=== PATIENT | female | born 1995 | race Hispanic/Latino ===

== ENCOUNTER 2018-02-26 09:20 | Outpatient (CLI) | payer OTHER ==
--- NOTE | 2018-02-26 13:10 | RAD ---
HYSTEROSALPINGOGRAM: HISTORY: Fertility testing. The patient has a history of an ectopic with reported fallopian tube re moval on the right side. FINDINGS: In a retrograde fashion, contrast was used to opacify the endometrium and fallopian tubes. There is appropriate retrograde opacification of the endometrium. Both fallopian tubes do opacify. There is free spillage into the left hemipelvis, compatible with a patent left fallopian tube. The r ight fallopian tube does opacify, but there is no evidence of free spillage. On the last image, ther e is contrast in the right hemipelvis secondary to free spillage in the left hemipelvis crossing midl ine. On real-time imaging, there is no evidence of active free spillage from the visualized right fa llopian tube. The lower uterine segment is unremarkable. IMPRESSION: 1. Bilateral fallopian tubes are noted. This does not correspond to the patient's surgical history. Better interrogation with surgical history is recommended to assess what was done in the past. 2. Patent and open left fallopian tube with free spillage in the left hemipelvis. Definite right fa llopian tube patency cannot be demonstrated. POS: [facility]
== END 2018-02-26 09:21 | disposition home or self-care (01) ==
LOC: RAD 09:20
PROVIDERS: ATTEND Obstetrics & Gynecology
DX: Z31.41 Encounter for fertility testing (principal)
CPT/HCPCS: 58340; 74740

== ENCOUNTER 2018-10-07 14:00 | Emergency (ER) | payer OTHER ==
[~2018-10-07 14:00] MED LIST: ISOVUE-370 76%-LOCM 1 ML ONE
[2018-10-07 14:44] LABS: #Basophils 0.1 thou/uL (0.0-0.2); #Eosinphils 0.2 thou/uL (0.0-0.7); #Lymphocytes 1.3 thou/uL (1.20-3.40); #Monocytes 0.7 thou/uL (0.11-0.59); #Neutrophils 5.8 thou/uL (1.40-6.50); %Basophils 0.7 % (0.0-1.0); %Eosinophils 2.7 % (0.0-10.0); %Lymphocytes 16.1 % (21.0-51.0); %Monocytes 8.4 % (0.0-10.0); %Neutrophils 72.1 % (42.0-75.0); Hemoglobin 13.3 g/dL (12.0-16.0); Mean Corpuscular HGB CONC 33.8 g/dL (32.0-36.0); Mean Corpuscular Hemoglobin 28.5 pg (27.0-31.0); Mean Corpuscular Volume 84.4 fL (78.0-98.0); Mean Platelet Volume 7.9 fL (7.4-10.4); Platelet Count 303 thou/uL (130-400); RBC Distribution Width 12.2 % (11.5-14.5); Red Blood Cell (RBC) Count 4.68 mill/uL (4.20-5.40)
[2018-10-07 15:05] LABS: ALT (SGPT) 24 U/L (8-55); AST (SGOT) 25 U/L (5-34); Albumin 4.3 g/dL (3.5-5.0); Alkaline Phosphatase 79 U/L (40-150); Anion Gap 11 mmol/L (10-20); BUN (Urea Nitrogen) 9 mg/dL (7.0-18.7); Bilirubin, Total 0.5 mg/dL (0.2-1.2); Calc. Creatinine Clearance 0 mL/min (70-130); Calcium 9.2 mg/dL (7.8-10.44); Carbon Dioxide 23 mmol/L (22-29); Chloride 107 mmol/L (98-107); Estimated GFR-MDRD Greater than 90; Globulin 3.2 g/dL (2.4-3.5); Glucose 75 mg/dL (70-105); Lipase 25 U/L (8-78); Potassium 3.7 mmol/L (3.5-5.1); Protein, Total 7.5 g/dL (6.0-8.3); Sodium 137 mmol/L (136-145)
[2018-10-07] MEDS ORDERED: Morphine 4 MG/ML VIAL ONE (16:08)
[2018-10-07] MEDS ORDERED: Ondansetron PF 4 MG/2 ML Vial ONE (16:09)
[2018-10-07 17:09] LABS: BHCG - Serum Negative (NEGATIVE); Pregs Control Background? CLEAR/WHITE (CLR/WHITE); Pregs Control Bar Appear? YES (CONTROL BAR)
[2018-10-07 18:10] LABS: Bilirubin Negative (Negative); Blood, Urine Negative (Negative); Clarity CLOUDY (Clear); Glucose, Urine (Dipstick) Negative (Negative); Leukocyte Small (Negative); Nitrite Negative (Negative); Protein, Urine (Dipstick) Negative (Neg-Trace); Specific Gravity, Urine 1.029 (1.002-1.036); Urobilinogen 0.2 mg/dL (0.2-1.0)
[2018-10-07 18:16] LABS: Pregnancy Test - Urine (BHCG) Negative (Negative); Pregu Control Background? CLEAR/WHITE (CLR/WHITE); Pregu Control Bar Appear? YES (CONTROL BAR); Specific Gravity 1.029 (1.002-1.036)
[2018-10-07 18:30] LABS: Bacteria/HPF None Seen HPF (None Seen); Hyaline Casts/LPF NONE SEEN LPF (0-3 Hyaline); RBC/HPF None Seen HPF (0-3); WBC/HPF None Seen HPF (0-3)
[2018-10-07] MEDS ORDERED: Ondansetron ODT 4 MG TAB ONE (18:36)
[2018-10-07] MEDS ORDERED: Ketorolac Tromethamine 30 MG/ML VIAL ONE (18:36)
--- NOTE | 2018-10-07 18:36 | CT ---
CT abdomen and pelvis with IV contrast. Oral contrast was not administered. INDICATIONS: Right lower quadrant abdominal pain COMPARISON: 01/06/2012 FINDINGS: Lung bases are clear Liver, spleen, and pancreas appear unremarkable. Stomach and duodenum appear unremarkable. Adrenal glands appear normal. There is a 4 mm nonobstructing calculus in the upper collecting structures the right kidney. 3 mm non obstructing calculus lower pole collecting structures right kidney. Kidneys otherwise unremarkable. Urinary bladder unremarkable. Small bowel loops are normal caliber and exhibit normal fold pattern. Appendix is identified and appears unremarkable. Colon is unremarkable. Aorta is normal caliber. No evidence of retroperitoneal or mesenteric adenopathy. Uterus appears unremarkable. Moderate amount of free fluid in the cul-de-sac. Ovaries poorly delineat ed. Subcutaneous tissues, abdominal wall, and muscular structures appear unremarkable. Osseous structures appear unremarkable. IMPRESSION: Moderate amount of free fluid in the cul-de-sac. Ovaries poorly evaluated. Correlate with serum hCG l evel. Pelvic ultrasound may be of benefit. Nonobstructing calculi in the upper collecting structures right kidney.
--- NOTE | 2018-10-07 19:59 | ULT ---
PELVIC ULTRASOUND: 10/07/18 Transabdominal and endovaginal ultrasound of pelvis performed. INDICATION: Pelvic pain. Uterus is unremarkable. Endometrial stripe is upper normal measured at 1.2 cm. There is a septated cyst right ovary measuring 4.1 x 1.5 x 2.6 cm. Free fluid is seen in the cul-de-s ac. Ovaries otherwise unremarkable. Color Doppler and spectral analysis demonstrates blood flow to mohamud th ovaries. IMPRESSION: 1. A complex septated cyst right ovary measuring up to 4 cm. 2. Free fluid in the cul-de-sac. 3. Mildly thickened endometrium. POS: [facility]
[2018-10-09 00:39] LABS: Chlamydia by PCR Not Detected (NotDetected); GC by PCR Not Detected (NotDetected)
== END 2018-10-07 20:50 | disposition home or self-care (01) ==
LOC: ERS 14:00
DX: N83.201 Unspecified ovarian cyst, right side (principal)
CPT/HCPCS: 36415; 74177; 76856; 80053; 81003; 81015; 81025; 83690; 84703; 85025; 87480; 87491; 87510; 87591; 87660; 96361; 96374; 96375; J1885; J2270; J2405; Q0162; Q9966

== ENCOUNTER 2018-10-08 14:33 | Emergency (ER) | payer OTHER ==
[2018-10-08] MEDS ORDERED: Ketorolac Tromethamine 60 MG/2 ML VIAL ONE (15:25)
[2018-10-08 15:41] LABS: #Eosinphils 0.3 thou/uL (0.0-0.7); #Lymphocytes 1.6 thou/uL (1.20-3.40); #Monocytes 0.7 thou/uL (0.11-0.59); #Neutrophils 5.3 thou/uL (1.40-6.50); %Basophils 0.5 % (0.0-1.0); %Eosinophils 3.6 % (0.0-10.0); %Lymphocytes 20.1 % (21.0-51.0); %Monocytes 9.1 % (0.0-10.0); %Neutrophils 66.7 % (42.0-75.0); Hemoglobin 12.7 g/dL (12.0-16.0); Mean Corpuscular HGB CONC 32.8 g/dL (32.0-36.0); Mean Corpuscular Hemoglobin 27.8 pg (27.0-31.0); Mean Corpuscular Volume 84.8 fL (78.0-98.0); Mean Platelet Volume 7.8 fL (7.4-10.4); Platelet Count 294 thou/uL (130-400); RBC Distribution Width 12.3 % (11.5-14.5); Red Blood Cell (RBC) Count 4.55 mill/uL (4.20-5.40)
[2018-10-08 16:04] LABS: ALT (SGPT) 24 U/L (8-55); AST (SGOT) 20 U/L (5-34); Albumin 3.9 g/dL (3.5-5.0); Alkaline Phosphatase 73 U/L (40-150); Anion Gap 10 mmol/L (10-20); BHCG - Serum Negative (NEGATIVE); BUN (Urea Nitrogen) 9 mg/dL (7.0-18.7); Bilirubin, Total 0.3 mg/dL (0.2-1.2); Calc. Creatinine Clearance 0 mL/min (70-130); Calcium 9.1 mg/dL (7.8-10.44); Carbon Dioxide 24 mmol/L (22-29); Chloride 108 mmol/L (98-107); Estimated GFR-MDRD Greater than 90; Globulin 3.1 g/dL (2.4-3.5); Glucose 88 mg/dL (70-105); Pregs Control Background? CLEAR/WHITE (CLR/WHITE); Pregs Control Bar Appear? YES (CONTROL BAR); Sodium 138 mmol/L (136-145)
--- NOTE | 2018-10-08 16:27 | ULT ---
TRANSVAGINAL PELVIC ULTRASOUND WITH REIS SCALE, COLOR FLOW AND SPECTRAL DOPPLER IMAGIN10/08/18 HISTORY: Right sided pelvic pain. COMPARISON: Previous day. FINDINGS: The uterus measures 6.4 x 3.2 x 4.5 cm without focal mass or endometrial fluid. The endometrium measu res 12 mm in thickness. The right ovary measures 2.7 x 5.4 x 4 cm and the left ovary measures 2.9 x 1.8 x 1.6 cm. Flow is dem onstrated to both ovaries. There is a 3.1 x 3.1 x 2.3 cm complex septated cystic mass arising from the right ovary which appear s slightly smaller compared to the previous study (4.1 x 1.5 x 2.6 cm). Free fluid in the cul-de-sac is again seen. IMPRESSION: 1. Complex septated right ovarian cyst slightly smaller compared to the previous day's exam. 2. Free fluid in the cul-de-sac. POS: [facility]
== END 2018-10-08 16:12 | disposition home or self-care (01) ==
LOC: ERS 14:33
DX: N83.201 Unspecified ovarian cyst, right side (principal)
CPT/HCPCS: 36415; 76856; 80053; 84703; 85025; 96372; J1885

== ENCOUNTER 2018-11-20 16:27 | Outpatient (CLI) | payer OTHER | END 2018-11-20 16:28 | disposition home or self-care (01) | LOC: CTENTCT 16:27 | PROVIDERS: ATTEND Otolaryngology Plastic Surgery within the Head & Neck | DX: J32.9 Chronic sinusitis, unspecified (principal) | CPT/HCPCS: 70486 ==

== ENCOUNTER 2018-11-26 08:11 | Day surgery (SDC) | payer OTHER ==
[2018-11-25 11:43] VITALS: BMI 29.0
[2018-11-26] MEDS ORDERED: Oxymetazoline HCl 0.05% ( 15 ML ) ONE ×2 (09:02→11:26)
[2018-11-26 09:19] LABS: BHCG - Serum Negative (NEGATIVE); Pregs Control Background? CLEAR/WHITE (CLR/WHITE); Pregs Control Bar Appear? YES (CONTROL BAR)
[2018-11-26] MEDS ORDERED: Fentanyl 250 MCG/5 ML VIAL ONE (09:28)
[2018-11-26] MEDS ORDERED: Lidocaine 1% PF 5 ML VIAL ONE (11:20)
[2018-11-26] MEDS ORDERED: ePHEDrine 50 MG/ML VIAL ONE (11:20)
[2018-11-26] MEDS ORDERED: PROPOFOL 200 MG/20 ML VIAL ONE (11:20)
[2018-11-26] MEDS ORDERED: Ondansetron PF 4 MG/2 ML Vial ONE (11:20)
[2018-11-26] MEDS ORDERED: Bacitracin Zinc Ointment 30 gm TUBE ONE (11:26)
[2018-11-26] MEDS ORDERED: Lidocaine 1% w/Epinephrine 1:100K 20 ML VIAL ONE (11:26)
[2018-11-26] MEDS ORDERED: Fentanyl 100 MCG/2 ML VIAL ONE (12:50)
[2018-11-26] MEDS ORDERED: Midazolam HCl 2 mg/2 ml Vial ONE ×2 (13:09→13:43)
[2018-11-26] MEDS ORDERED: Sodium Chloride For Inhalation 0.9% 3 ML NEB ONE (13:26)
[2018-11-26] MEDS ORDERED: SUGAMMADEX SODIUM 500 MG/5 ML VIAL ONE (13:33)
[2018-11-26] MEDS ORDERED: Lidocaine 1% (PF) 30 ML VIAL ONE (13:39)
--- NOTE | 2018-11-26 14:34 | RAD ---
CHEST ONE VIEW: 11/26/18 COMPARISON: Radiograph from 2015. HISTORY: Chest pain, chest tightness. FINDINGS: The lungs are clear. No pneumothorax. No effusion. No acute osseous abnormality. IMPRESSION: No acute intrathoracic abnormality. POS: [facility]
--- NOTE | 2018-11-26 14:36 | OP ---
DATE OF PROCEDURE: 11/26/2018 PREOPERATIVE DIAGNOSES: 1. Chronic rhinosinusitis. 2. Nasal septal deviation. 3. Bilateral inferior turbinate hypertrophy. 4. Left middle turbinate luis bullosa. 5. Nasal obstruction. POSTOPERATIVE DIAGNOSES: 1. Chronic rhinosinusitis. 2. Nasal septal deviation. 3. Bilateral inferior turbinate hypertrophy. 4. Left middle turbinate luis bullosa. 5. Nasal obstruction. PROCEDURES PERFORMED: 1. Bilateral endoscopic sinus surgery, total ethmoidectomies. 2. Bilateral endoscopic sinus surgery, maxillary antrostomies. 3. Bilateral endoscopic sinus surgery, frontal sinusotomies. 4. Nasal septoplasty. 5. Bilateral inferior turbinate submucosal resection. ESTIMATED BLOOD LOSS: 20 mL. COMPLICATIONS: None. ANESTHESIA: GETA. PROCEDURE IN DETAIL: Patient was taken to the operating room and placed supine on the table. General endotracheal anesthesia was obtained by the anesthesia staff. Tube was secured in the left lower lip. Patient was then placed in the beach chair position, and Afrin pledgets were placed in the nasal cavity. Injections of 1% lidocaine with 1:100,000 epinephrine were made into the nasal septum as well as the inferior turbinates. Patient was then prepped and draped in standard surgical fashion for nasal surgery. Following this, the Afrin pledgets were removed. A Chaires incision was made on the left nasal septum. Submucoperichondrial dissection was performed. The deviated portions of the septum included portions of the cartilage and the bony septum. These isolated areas were removed using 3 cutting rongeurs. There was noted to be a large dorsal and caudal strut, left intact for support of the nose. The mucoperichondrial flaps were then reapproximated using a 4-0 gut stitch. Any straight pieces of cartilage were crushed prior to this and placed between the mucoperichondrial flaps. Following this, the inferior turbinates were then punctured with a submucosal coblation wand, and submucosal coblations were performed of multiple areas of the inferior portion of the anterior inferior turbinate. Please note that the submucosal microdebrider was used to submucosally resect the anterior and inferior portions of the inferior turbinates bilaterally. Following this, the large left middle turbinate luis bullosa deformity was incised vertically with a sickle knife on the anterior end of the middle turbinate. The lateral wall of this luis bullosa was then resected using the 0-degree microdebrider and straight Blakesley forceps. Following this, the uncinate process was visualized bilaterally and the uncinate process was anteriorly fractured using a ball-ended probe. Following this, the uncinate was then removed using the curved microdebrider and up-biting Blakesley forceps bilaterally. Following this, the natural maxillary sinus ostia was identified and was widened using the ball-ended probe, straight Blakesley forceps, and 40-degree microdebrider blade bilaterally. Following this, the ethmoidal bulla was identified and was punctured on its medial and inferior aspect and was removed using the microdebrider and up-biting Blakesley forceps. Following this, the grand lamella was identified and was punctured into the posterior ethmoidal cells. Working from posterior to anterior, the ethmoidal cells were opened in a mucosal-sparing technique. Following this, a 45-degree endoscope along with 40-degree microdebrider blade were used to further open the frontal sinus ostia bilaterally. Following this, the curved microdebrider and curved suction device were used to remove large polyps from the right maxillary sinus. Following this, the nasal cavity was irrigated. Mirapex was placed. Toscano splints were placed and secured. The patient tolerated the procedure well. Job ID: [id number]
== END 2018-11-26 16:57 | disposition home or self-care (01) ==
LOC: SDC 08:11
PROVIDERS: ATTEND Otolaryngology Plastic Surgery within the Head & Neck
PROC: 09TL8ZZ Resection of Nasal Turbinate, Via Natural or Artificial Opening Endoscopic (ICD-10-PCS; principal; 2018-11-26)
PROC: 099R8ZZ Drainage of Left Maxillary Sinus, Via Natural or Artificial Opening Endoscopic (ICD-10-PCS; principal; 2018-11-26)
PROC: 099Q8ZZ Drainage of Right Maxillary Sinus, Via Natural or Artificial Opening Endoscopic (ICD-10-PCS; principal; 2018-11-26)
DX: J32.8 Other chronic sinusitis (principal); J34.2 Deviated nasal septum; J34.3 Hypertrophy of nasal turbinates; J34.89 Other specified disorders of nose and nasal sinuses
CPT/HCPCS: 36415; 71045; 84703; 85014; J0131; J2001; J2250; J2405; J2704; J3010; J3490; J7620

== ENCOUNTER 2020-03-18 01:18 | Emergency (ER) | payer BC, OTHER ==
[2020-03-18 01:43] LABS: #Basophils 0.1 thou/uL (0.0-0.2); #Eosinphils 0.3 thou/uL (0.0-0.7); #Lymphocytes 2.1 thou/uL (1.20-3.40); #Monocytes 0.8 thou/uL (0.11-0.59); #Neutrophils 7.1 thou/uL (1.40-6.50); %Basophils 0.6 % (0.0-1.0); %Eosinophils 2.6 % (0.0-10.0); %Lymphocytes 20.6 % (21.0-51.0); %Neutrophils 68.2 % (42.0-75.0); Hemoglobin 12.9 g/dL (12.0-16.0); Mean Corpuscular HGB CONC 33.7 g/dL (32.0-36.0); Mean Corpuscular Hemoglobin 28.1 pg (27.0-31.0); Mean Corpuscular Volume 83.2 fL (78.0-98.0); Mean Platelet Volume 8.2 fL (7.4-10.4); Platelet Count 309 thou/uL (130-400); RBC Distribution Width 11.9 % (11.5-14.5); Red Blood Cell (RBC) Count 4.61 mill/uL (4.20-5.40); White Blood Cell (WBC) Count 10.3 thou/uL (4.8-10.8)
[2020-03-18 01:46] LABS: Bilirubin Negative (Negative); Blood, Urine Large (Negative); Glucose, Urine (Dipstick) Negative (Negative); Ketone, Urine Trace mg/dL (Negative); Leukocyte Small (Negative); Nitrite Negative (Negative); Protein, Urine (Dipstick) 100 mg/dL (Neg-Trace); Urobilinogen 0.2 mg/dL (Less than 2)
[2020-03-18 01:47] LABS: Clarity Cloudy (Clear)
[2020-03-18 01:48] LABS: Pregnancy Test - Urine (BHCG) Negative (Negative); Pregu Control Background? CLEAR/WHITE (CLR/WHITE); Pregu Control Bar Appear? YES (CONTROL BAR); Specific Gravity 1.033 (1.002-1.036); Specific Gravity, Urine 1.033 (1.002-1.036)
[2020-03-18] MEDS ORDERED: Ondansetron PF 4 MG/2 ML Vial ONE (01:51)
[2020-03-18 01:52] LABS: Bacteria/HPF Rare-Few HPF (None Seen); RBC/HPF Greater than 50 HPF (0-3); Squamous Epithelial 0-3 HPF (0-3)
[2020-03-18] MEDS ORDERED: Morphine 2 MG/ML VIAL ONE (02:01)
[2020-03-18 02:04] LABS: ALT (SGPT) 15 U/L (8-55); AST (SGOT) 16 U/L (5-34); Albumin 4.3 g/dL (3.5-5.0); Alkaline Phosphatase 92 U/L (40-110); Anion Gap 11 mmol/L (10-20); BUN (Urea Nitrogen) 11 mg/dL (7.0-18.7); Bilirubin, Total 0.5 mg/dL (0.2-1.2); Calc. Creatinine Clearance 0 mL/min (70-130); Calcium 9.1 mg/dL (7.8-10.44); Carbon Dioxide 26 mmol/L (22-29); Chloride 107 mmol/L (98-107); Estimated GFR-MDRD 86; Globulin 3.3 g/dL (2.4-3.5); Glucose 97 mg/dL (70-105); Potassium 3.5 mmol/L (3.5-5.1); Protein, Total 7.6 g/dL (6.0-8.3); Sodium 140 mmol/L (136-145)
[2020-03-18] MEDS ORDERED: Ketorolac Tromethamine 30 MG/ML VIAL ONE (02:53)
--- NOTE | 2020-03-18 08:08 | CT ---
PRELIMINARY REPORT/[facility]/EMERGENCY AFTER HOURS PROCEDURE EXAM: CT Abdomen and Pelvis with Intravenous Contrast CLINICAL HISTORY: 24yo F with abdominal pain starting around 2200 tonight while sitting on the couch. Describes it as R LQ, sharp and cramping. TECHNIQUE: Axial computed tomography images of the abdomen and pelvis with intravenous contrast. CONTRAST: With; ISOVUE 370,100mL COMPARISON: None provided. FINDINGS: LUNG BASES: No basilar airspace consolidation or pleural effusion. LIVER: Unremarkable. GALLBLADDER AND BILE DUCTS: Unremarkable. No calcified stone. No ductal dilation. PANCREAS: Unremarkable. SPLEEN: Unremarkable. ADRENAL GLANDS: Unremarkable. KIDNEYS, URETERS, AND BLADDER: There is some asymmetric prominence of the upper collecting system of the right kidney however no ure teral dilatation or ureteral stones are seen. Bladder is mildly distended. On coronal imaging, there is a punctate stone in the inferior pole calyx on the right. STOMACH AND BOWEL: No obstruction. No wall thickening. No CT evidence of colitis or acute diverticulitis. APPENDIX: Normal appendix. PERITONEUM: Small amount of free fluid in the cul-de-sac. No free air. LYMPH NODES: No lymphadenopathy. REPRODUCTIVE: Unremarkable as visualized. VASCULATURE: No aortic aneurysm. BONES: No fracture or suspicious osseous abnormality. ABDOMINAL WALL AND SOFT TISSUES: Unremarkable. IMPRESSION: Some prominence of the upper collecting system on the right without an obstructing stone identified o n this contrast-enhanced study. There is a small phlebolith noted in the right hemipelvis near the ureter but this is a phlebolith. No specific, acute abnormalities identified. ELECTRONICALLY SIGNED BY: Stone Charlton MD Mar 18, 2020 5:10:08 AM STAFFING ASSOCIATE This report is intended for review by the ordering physician only, in accordance of law. If you recei ve this report in error, please call [facility] at [phone]. FINAL REPORT Final report by Dr. Ibrahim Emergency after-hours study CT ABDOMEN WITH CONTRAST CT PELVIS WITH CONTRAST: DATE: 03/18/2020 4:44 AM HISTORY: 24-year-old female with right lower quadrant abdominal pain. Dr. Ibrahim reported the discrepancy with the preliminary report by [facility] regarding the right ureteral calculus, by telephone to ER charge nurse, Sarah Beal, at 8:03 AM 03/18/2020 COMPARISON: 10/07/2018 TECHNIQUE: IV injection of iodinated contrast media: administered. Oral contrast media:Administered. FINDINGS: There is a new 5 x 4 x 4 mm calculus in the right distal ureter at the mid sacral level of the pelvic inlet. Although the right ureter is not significantly dilated, there is mild dilation of the right renal collecting system. Furthermore, there is a delayed right nephrogram compared to the normal left nephrogram. The small calculus at the lower pole of the right kidney was reported by the [facility] prelimi nary report. It measures approximately 3 x 2 x 2 mm. Slightly inferior to that, there is a small focal lower pole cortical scar. The appendix, abdominal aorta, pancreas, adrenals, liver, spleen, and the distended urinary bladder, are normal. No small bowel dilation or colonic diverticulitis. Small amount of free fluid in the cul-de-sac is probably physiologic in a patient of this age. Disagreement with preliminary report by [facility]. IMPRESSION: 1) positive for obstructive uropathy: 5 mm calculus in right distal ureter causing mild right hydrone phrosis and delayed right nephrogram. 2) mild nephrolithiasis consisting of a small 3 x 2 mm calculus in right kidney. Transcribed Date/Time: 03/18/2020 8:42 AM
--- NOTE | 2020-03-18 08:31 | ULT ---
PRELIMINARY REPORT/[facility]/EMERGENCY AFTER HOURS PROCEDURE: EXAM: US Pelvis, Complete. CLINICAL HISTORY: RLQ pelvic pain, constipation, N/V TECHNIQUE: Transvaginal and transabdominal pelvic ultrasound (complete) with image documentation. COMPARISON: None provided. FINDINGS: ENDOMETRIUM: Normal thickness. UTERUS/CERVIX: Normal size and contour. No fibroid detected. Measures 6.5 x 2.8 x 3.6 cm RIGHT OVARY: Normal follicles. No adnexal mass. Normal blood flow. Measures 2.9 x 1.7 x 3.2 cm LEFT OVARY: Normal follicles. No adnexal mass. Normal blood flow. Measures 2.8 x 3.5 x 1.9 cm FREE FLUID: No free fluid. IMPRESSION: Unremarkable pelvic ultrasound. ELECTRONICALLY SIGNED BY: Terrence Grimm MD Mar 18, 2020 2:53:28 AM [employer] This report is intended for review by the ordering physician only, in accordance of law. If you recei ve this report in error, please call [facility] at [phone]. FINAL REPORT PELVIC ULTRASOUND INCLUDING TRANSABDOMINAL AND TRANSVAGINAL AND VASCULAR DUPLEX WITH COLOR AND SPECTR AL DOPPLER IMAGING PERFORMED ON AN EMERGENCY AFTER HOURS BASIS AT 0236 HOURS ON 03/18/2020: Uterus and right and left ovaries are unremarkable. There is vascular flow to both ovaries. No abnorm al fluid collection. IMPRESSION: Unremarkable pelvic ultrasound. This report is in agreement with preliminary report by [facility]. POS: [facility]
[2020-03-18] MEDS ORDERED: Iopamidol-370 76% 500 ML 1 ML ONE (13:53)
== END 2020-03-18 05:44 | disposition home or self-care (01) ==
LOC: ERS 01:18
DX: R10.31 Right lower quadrant pain (principal)
CPT/HCPCS: 74177; 76856; 80053; 81003; 81015; 81025; 85025; 87086; 96374; 96375; J1885; J2270; J2405; Q9967

== ENCOUNTER 2020-03-19 10:31 | Observation (INO) | payer BC ==
[2020-03-19] MEDS ORDERED: Ketorolac Tromethamine 30 MG/ML VIAL ONE (10:56)
[2020-03-19] MEDS ORDERED: Ondansetron PF 4 MG/2 ML Vial ONE (10:56)
[2020-03-19] MEDS ORDERED: Morphine 4 MG/ML VIAL ONE ×2 (10:56→11:59)
[2020-03-19 11:13] LABS: #Basophils 0.1 thou/uL (0.0-0.2); #Eosinphils 0.2 thou/uL (0.0-0.7); #Lymphocytes 1.4 thou/uL (1.20-3.40); #Monocytes 0.3 thou/uL (0.11-0.59); #Neutrophils 4.2 thou/uL (1.40-6.50); %Basophils 0.8 % (0.0-1.0); %Eosinophils 2.6 % (0.0-10.0); %Lymphocytes 23.2 % (21.0-51.0); %Neutrophils 68.4 % (42.0-75.0); Hemoglobin 12.8 g/dL (12.0-16.0); Mean Corpuscular HGB CONC 33.1 g/dL (32.0-36.0); Mean Corpuscular Hemoglobin 27.5 pg (27.0-31.0); Mean Corpuscular Volume 83.1 fL (78.0-98.0); Platelet Count 299 thou/uL (130-400); RBC Distribution Width 12.2 % (11.5-14.5); Red Blood Cell (RBC) Count 4.66 mill/uL (4.20-5.40); White Blood Cell (WBC) Count 6.1 thou/uL (4.8-10.8)
[2020-03-19 11:22] LABS: ALT (SGPT) 11 U/L (8-55); AST (SGOT) 21 U/L (5-34); Alkaline Phosphatase 82 U/L (40-110); Anion Gap 14 mmol/L (10-20); BUN (Urea Nitrogen) 9 mg/dL (7.0-18.7); Bilirubin, Total 0.5 mg/dL (0.2-1.2); Calc. Creatinine Clearance 0 mL/min (70-130); Carbon Dioxide 22 mmol/L (22-29); Chloride 108 mmol/L (98-107); Estimated GFR-MDRD Greater than 90; Globulin 3.5 g/dL (2.4-3.5); Glucose 83 mg/dL (70-105); Potassium 4.2 mmol/L (3.5-5.1); Protein, Total 7.5 g/dL (6.0-8.3); Sodium 140 mmol/L (136-145)
[2020-03-19 11:28] LABS: Bacteria/HPF None Seen HPF (None Seen); Bilirubin Negative (Negative); Blood, Urine 1+ (Negative); Clarity Clear (Clear); Glucose, Urine (Dipstick) Normal (Negative); Ketone, Urine Negative (Negative); Leukocyte Negative Leu/uL (Negative); Mucous/LPF 1+ LPF (<2+); Nitrite Negative (Negative); Protein, Urine (Dipstick) Negative (Neg-Trace); RBC/HPF 21-50 HPF (0-3); Specific Gravity, Urine 1.017 (1.002-1.036); Urobilinogen Normal mg/dL (Less than 2); WBC/HPF 0-3 HPF (0-3); pH, Urine 6.5 (5.0-9.0)
--- NOTE | 2020-03-19 12:43 | ULT ---
ULTRASOUND RETROPERITONEUM COMPLETE: (RENAL) DATE: 03/19/2020 HISTORY: 24-year-old female with right abdominal pain FINDINGS: Right kidney: 10.5 x 5 x 4.5 cm. Left kidney: 10.5 x 5 x 4.5 cm. Dilation of right renal pelvis and mild dilation of right calyces. In the urinary bladder, a strong left ureteral jet is visualized. A weaker right ureteral jet is visu alized. IMPRESSION: Partial right ureteral obstruction
[2020-03-19] MEDS ORDERED: Fentanyl 100 MCG/2 ML VIAL ONE (13:31)
[2020-03-19] MEDS ORDERED: diphenhydrAMINE 50 MG/ML VIAL IVP PRN (15:11)
[2020-03-19] MEDS ORDERED: Morphine 4 MG/ML VIAL SLOW IVP PRN (15:11)
[2020-03-19] MEDS ORDERED: Zolpidem Tartrate 5 MG TAB PO PRN (15:11)
[2020-03-19] MEDS: D5 1/2 NS w/20 mEq KCL 1,000 ML IV SCH (15:26)
[2020-03-19] MEDS: HYDROcodone/Acetaminophen 5/325 mg Tablet PO PRN ×2 (15:26→19:28)
[2020-03-19] MEDS: Ondansetron PF 4 MG/2 ML Vial IVP PRN ×2 (15:29→20:50)
[2020-03-19] MEDS: Ketorolac Tromethamine 30 MG/ML VIAL IVP SCH ×2 (17:36→23:15)
[2020-03-19] MEDS: Docusate 100 MG CAP PO SCH (19:29)
[2020-03-20] MEDS: D5 1/2 NS w/20 mEq KCL 1,000 ML IV SCH ×2 (01:30→16:32)
[2020-03-20] MEDS: Ketorolac Tromethamine 30 MG/ML VIAL IVP SCH ×2 (06:42→14:24)
[2020-03-20] MEDS ORDERED: Iothalamate Meglumine 60% 50 ML VIAL FS ONE (07:45)
[2020-03-20] MEDS ORDERED: FLU VACC QS2020-21(6MOS UP)/PF 60 MCG/0.5 ML SYRINGE IM ONE (09:00)
[2020-03-20] MEDS ORDERED: Promethazine HCl 25 MG/ML VIAL SLOW IVP PRN (09:06)
[2020-03-20] MEDS ORDERED: Meperidine HCl/PF 25 MG/ML VIAL SLOW IVP PRN (09:06)
[2020-03-20] MEDS ORDERED: Ondansetron HCl/PF 4 MG/2 ML Vial IVP PRN (09:06)
[2020-03-20] MEDS ORDERED: Promethazine HCl 25 MG/ML VIAL IM PRN (09:06)
[2020-03-20] MEDS: Docusate 100 MG CAP PO SCH ×2 (09:14→14:24)
[2020-03-20] MEDS ORDERED: Ondansetron PF 4 MG/2 ML Vial ONE (09:16)
[2020-03-20] MEDS ORDERED: Lidocaine 1% PF 5 ML VIAL ONE (09:16)
[2020-03-20] MEDS ORDERED: PROPOFOL 200 MG/20 ML VIAL ONE (09:16)
[2020-03-20] MEDS ORDERED: Midazolam HCl 2 mg/2 ml Vial ONE (09:50)
[2020-03-20] MEDS ORDERED: Fentanyl 100 MCG/2 ML VIAL ONE ×2 (09:54→10:54)
[2020-03-20 10:15] VITALS: TEMP 98.7
--- NOTE | 2020-03-20 10:54 | RAD ---
Exam: Right retrograde pyelogram: HISTORY: Ureteral calculus. COMPARISON: 03/18/2020 CT FINDINGS: Right ureter is catheterized. Contrast media is injected with probable right ureteral calculus. Right ureteral stent is placed. IMPRESSION: Evidence for right ureteral calculus. Right ureteral stent is placed.
--- NOTE | 2020-03-20 11:36 | OP ---
DATE OF PROCEDURE: 03/20/2020 PREOPERATIVE DIAGNOSIS: Right ureteral stone. POSTOPERATIVE DIAGNOSIS: Right ureteral stone. PROCEDURES PERFORMED: Cystoscopy with right retrograde pyelogram and 4.8 x 24 double-J ureteral stent placement. ANESTHESIA: General. COMPLICATIONS: None. ESTIMATED BLOOD LOSS: None. SPECIMEN: None. DESCRIPTION OF PROCEDURE: After informed consent, the patient was taken to the operating room, transferred to the table under her own power. Anesthesia was established. A time-out was performed, showing the correct patient, site, and procedure. Preoperative antibiotics were administered. She was prepped and draped in the lithotomy position. I began by inserting the rigid cystoscope through the urethra into the bladder. The right ureteral orifice was identified and I attempted to pass the Pollack catheter, however, it seemed become obstructed shortly after entering the ureteral orifice. A wire was then passed through this into the renal pelvis under fluoroscopic guidance and I was able to pass the Pollack into the distal ureter. The wire was removed and a retrograde pyelogram was performed showing minimal hydroureter or hydronephrosis with no filling defects. Given the possible obstruction in the distal ureter, I then switched to the semi-rigid ureteroscope and was able to negotiate this into the distal ureter only about 2 cm before developing significant difficulty passing it. I did not identify the stone, indicating that it likely remains more proximal in the ureter. I then removed that scope and passed a 4.8 x 24 double-J ureteral stent over the wire with a curl in the kidney and curl in the bladder under fluoroscopic guidance. Completion images were taken. The bladder was drained. She was awoken from anesthesia, transferred back to her hospital bed, and taken to PACU in stable condition, where she was discharged home upon recovery. Job ID: [id number]
[2020-03-20 12:37] VITALS: BMI 28.7
[2020-03-20] MEDS: HYDROcodone/Acetaminophen 5/325 mg Tablet PO PRN (14:23)
--- NOTE | 2020-03-20 14:38 | HP ---
CHIEF COMPLAINT: Right-sided flank pain. HISTORY OF PRESENT ILLNESS: This is a 24-year-old female initially seen in the emergency room on March 18 with right-sided flank pain, at which point, a CT scan identified a 5 mm distal right ureteral stone. She was stabilized and discharged with plans for followup next week. However, yesterday March 19, she had return of severe right-sided flank pain with nausea and returned to the emergency room, where an ultrasound again showed hydronephrosis and admission was requested. Overnight, she has continued to have intermittent right-sided flank pain up to 7/10 with nausea, but no vomiting. She denies flank pain, dysuria, or hematuria. No prior history of stones. Oral and IV pain medication have been helping with her discomfort. PAST MEDICAL HISTORY: Ectopic . PAST SURGICAL HISTORY: Sinus surgery and surgery for ectopic with right fallopian tube removed. SOCIAL HISTORY: Nonsmoker. No substance abuse. FAMILY HISTORY: Reviewed, noncontributory. ALLERGIES: NO KNOWN DRUG ALLERGIES. REVIEW OF SYSTEMS: A 12-point review of systems performed, negative except as mentioned in my HPI. PHYSICAL EXAMINATION: VITAL SIGNS: Afebrile. Vitals stable overnight. GENERAL: No acute distress, conversant. HEENT: Head, normocephalic and atraumatic. Extraocular movements intact. Sclerae anicteric. NECK: Supple. Trachea midline. Unlabored breathing. Symmetric chest expansion. HEART: Regular rate and rhythm. ABDOMEN: Soft, nontender, and nondistended. Mild right flank tenderness. Mild suprapubic tenderness. SKIN: Warm and dry. EXTREMITIES: Without clubbing, cyanosis, or edema. PSYCHIATRIC: Normal mood and affect. NEUROLOGIC: Alert and oriented x3. LABORATORY DATA: Laboratory reviewed from 03/19, white count 6. Creatinine 0.78 and calcium 9.0. Urinalysis, positive red blood cells, otherwise no signs of infection. IMAGING: I personally reviewed her CT scan, which does show a 5 to 6 mm stone in the distal right ureter with hydroureter. Ultrasound from 03/19 continues to show right-sided hydronephrosis. ASSESSMENT AND PLAN: Right ureteral stone with hydronephrosis, failed outpatient therapy. We discussed her options of performing ureteroscopy on Saturday as an outpatient versus emergent stent placement today for pain control. She does not think that she would make it until Saturday and so we will proceed with cystoscopy and right ureteral stent placement. She understands that she will need a second procedure to remove the stone at some point. We discussed the procedure in detail including the expected postoperative course and the risks of bleeding, infection, pain, and inability to bypass the stone to place the stent. She expressed understanding and agrees with proceeding. I anticipate that she will be able to discharge afterwards and we will begin planning outpatient ureteroscopy with laser. Job ID: [id number]
[2020-03-20 14:45] VITALS: BP 112/65
[2020-03-20 18:16] LABS: SARS-CoV-2 MS2 Positive; SARS-CoV-2 N Gene Negative; SARS-CoV-2 S Gene Negative; SARS-CoV-2 by NAA Not Detected (NotDetected); SARS-CoV-2 orf1ab Negative
--- NOTE | 2020-03-21 02:00 | DIS ---
DATE OF ADMISSION: 03/19/2020 DATE OF DISCHARGE: 03/20/2020 CHIEF COMPLAINT: Right flank pain. DIAGNOSIS: Right ureteral stone with hydronephrosis. HOSPITAL COURSE: The patient was admitted to the ER on March 19 for unremitting right flank pain. She was taken to the operating room the next day for ureteral stent placement. There were no surgical complications. She recovered well postoperatively and was stable later that day for discharge with plans to return for ureteroscopy in the near future. DISCHARGE MEDICATIONS: 1. Tramadol. 2. Bactrim. 3. Oxybutynin. 4. Tamsulosin. All sent to [facility] on [address] [place] [address]. 5. She will resume her Betty as needed. Resume all normal activities. Resume normal diet. Bathe normally. I will be arranging outpatient ureteroscopy with her. Job ID: [id number]
== END 2020-03-20 16:25 | disposition home or self-care (01) ==
LOC: ERS 10:31 → 3SE 13:16
PROVIDERS: ADMIT Urology; ATTEND Urology
PROC: 0T768DZ Dilation of Right Ureter with Intraluminal Device, Via Natural or Artificial Opening Endoscopic (ICD-10-PCS; principal; 2020-03-20)
DX: N13.2 Hydronephrosis with renal and ureteral calculous obstruction (principal); Z79.899 Other long term (current) drug therapy
CPT/HCPCS: 36415; 74420; 76770; 80053; 81003; 81015; 85025; 87635; 96374; 96375; 96376; G0378; J0690; J1885; J2250; J2270; J2405; J2704; J3010; J3480; U0003

== ENCOUNTER 2020-03-22 10:12 | Outpatient (CLI) | payer BC ==
[2020-03-23 10:57] LABS: SARS-CoV-2 MS2 Positive; SARS-CoV-2 N Gene Negative; SARS-CoV-2 S Gene Negative; SARS-CoV-2 by NAA Not Detected (NotDetected); SARS-CoV-2 orf1ab Negative
== END 2020-03-22 10:13 | disposition home or self-care (01) ==
LOC: LABBT 10:12
PROVIDERS: ATTEND Urology
DX: N20.1 Calculus of ureter (principal); Z20.828 Contact with and (suspected) exposure to other viral communicable diseases
CPT/HCPCS: 87635; U0003

== ENCOUNTER 2020-03-25 10:11 | Day surgery (SDC) | payer BC ==
[2020-03-24 13:00] VITALS: BMI 27.3
[2020-03-25] MEDS ORDERED: Lidocaine 1% PF 5 ML VIAL ONE (10:20)
[2020-03-25] MEDS ORDERED: Ketorolac Tromethamine 30 MG/ML VIAL ONE (10:20)
[2020-03-25] MEDS ORDERED: Dexamethasone 20 MG/5 ML VIAL ONE (10:20)
[2020-03-25] MEDS ORDERED: Ondansetron PF 4 MG/2 ML Vial ONE (10:20)
[2020-03-25] MEDS ORDERED: PROPOFOL 200 MG/20 ML VIAL ONE (10:20)
[2020-03-25] MEDS ORDERED: Levofloxacin 500 mg/D5W 100 ml Premix Bag ONE (11:01)
[2020-03-25] MEDS ORDERED: Iothalamate Meglumine 60% 50 ML VIAL FS ONE (11:57)
[2020-03-25 12:16] LABS: BHCG - Serum Negative (NEGATIVE); Pregs Control Background? CLEAR/WHITE (CLR/WHITE); Pregs Control Bar Appear? YES (CONTROL BAR)
[2020-03-25] MEDS ORDERED: Fentanyl 100 MCG/2 ML VIAL ONE (13:02)
[2020-03-25] MEDS ORDERED: Benztropine Mesylate 2 MG/2 ML VIAL IVP SCH (14:15)
[2020-03-25] MEDS ORDERED: Benztropine Mesylate 2 MG/2 ML VIAL IVP PRN (14:30)
--- NOTE | 2020-03-25 14:35 | RAD ---
Retrograde pyelogram 5 views: 03/25/2020 HISTORY: 24-year-old female with urolithiasis and right obstructive uropathy COMPARISON: Retrograde pyelogram of 03/20/2020 FINDINGS: The first 2 images are centered at the chest and upper abdomen, excluding the lower abdomen and pelvi s. First image demonstrates what appears to be the upper portion of a ureteral stent at the lower L2 lev el. In the second image, a wire is advanced to the T11-12 level, and is looped doubled back. Third image shows same finding, but is centered more inferiorly, showing the upper pelvis. Fourth image demonstrates contrast material within a mildly dilated right renal collecting system. Th e looped wire is at an upper major calyx. Distal tip of a long thin metallic maribel is at the L4-5 level. The final image demonstrates additional contrast material in the mildly dilated right renal collectin g system, and tip of catheter without pigtail loop in the mid pole renal pelvis. IMPRESSION: 1.) Exchange of right ureteral stent. 2) mild right hydronephrosis.
[2020-03-25] MEDS ORDERED: diphenhydrAMINE 50 MG/ML VIAL ONE (14:51)
[2020-03-25] MEDS ORDERED: Oxybutynin 5 MG TAB ONE (15:06)
--- NOTE | 2020-03-25 16:49 | OP ---
DATE OF PROCEDURE: 03/25/2020 PREOPERATIVE DIAGNOSIS: Right ureteral stone. POSTOPERATIVE DIAGNOSIS: Right ureteral stone. PROCEDURES PERFORMED: Right ureteroscopy, laser lithotripsy, basket extraction of stone, 4.8 x 24 double-J ureteral stent with strings, retrograde pyelogram, intraoperative interpretation of radiologic imaging. ANESTHESIA: General. COMPLICATIONS: None. ESTIMATED BLOOD LOSS: None. SPECIMEN: Right ureteral stone fragments. DESCRIPTION OF PROCEDURE: After informed consent, the patient was taken to the operating room, transferred to the table under her own power. Anesthesia was established. A time-out was performed, showing correct patient, site, and procedure. Preoperative antibiotics were administered. She was prepped and draped in the lithotomy position. The rigid cystoscope was advanced through the urethra into the bladder. The right ureteral stent was grasped and brought out the urethral meatus. A wire was passed through this into the renal pelvis under fluoroscopic guidance. The semi-rigid ureteroscope was passed into the bladder and alongside the wire into the mid to distal ureter where the stone was encountered. This was treated with a 365 micron laser fiber and broken into three pieces. The 1.9 cm Nitinol basket was used to retrieve these pieces, which were passed off as specimen. The scope was then passed into the mid to proximal ureter noting no further abnormalities. Retrograde pyelogram was performed filling the upper ureter and renal pelvis with contrast, noting no further filling defects. The scope was then withdrawn and a 4.8 x 24 double-J ureteral stent with strings was passed over the wire with a curl in the kidney and curl in the bladder under fluoroscopic guidance. The strings were taped to the patient's abdomen with a Tegaderm. She was then awoken from anesthesia, transferred back to her hospital bed, and taken to PACU in stable condition, where she was discharged home upon recovery. Job ID: [id number]
== END 2020-03-25 17:13 | disposition home or self-care (01) ==
LOC: SDC 10:11
PROVIDERS: ATTEND Urology
PROC: 0TC68ZZ Extirpation of Matter from Right Ureter, Via Natural or Artificial Opening Endoscopic (ICD-10-PCS; principal; 2020-03-25)
PROC: 0T768DZ Dilation of Right Ureter with Intraluminal Device, Via Natural or Artificial Opening Endoscopic (ICD-10-PCS; principal; 2020-03-25)
DX: N20.1 Calculus of ureter (principal)
CPT/HCPCS: 36415; 74420; 84703; 88300; J0515; J1100; J1200; J1885; J1956; J2405; J2704; J3010